=== PATIENT | female | born 1940 | race Caucasian/White ===

== ENCOUNTER → 2017-08-15 | Outpatient (CLI) | payer OTHER ==
[~2017-08-15] MED LIST: ALDACTONE25 MG PO; ASPIR 8181 MG PO; AYR SALINE NASA14 GM; AYR SALINE NASA14 GM TOP; BACTRIM DS TAB1 EACH PO; COLACE100 MG PO; DEMADEX20 MG PO; DIGOXIN250 MCG PO; DILTIAZEM 24HR360 M1 PO; DUONEB 2.5-0.5 M3 ML; DUONEB 2.5-0.5 M3 ML INH; ELIQUIS5 MG PO; FLECAINIDE ACET50 M1 PO; FLONASE 0.05%50 MCG; FLONASE 0.05%50 MCG NASAL; HYDROCERIN CREA1 JAR TOP; HYDROCODON-ACE1 EAC7 PO; IRON325 PO; KEFLEX500 MG PO; KLOR-CON 1010 MEQ PO; LASIX 40 MG TAB40 M2; LASIX 40 MG TAB40 M2 PO; LEVAQUIN 500 M500 M2 PO; LEVOTHYROXIN0.112 M1; LEVOTHYROXIN0.112 M1 PO; LEVOTHYROXIN0.125 M1 PO; MIRALAX17 GM PO; MIRALAX255 GM; MUCINEX TA600 MG/TA2 PO; MUCUS ER600 M1 PO; NAPROSYN500 M1 PO; NORCO 5-325 TA1 EACH PO; NYSTATIN 1100000 U/M PO; ONDANSETRON HCL4 M2 PO; PHENAZOPYRIDIN200 M2 PO; QNASL8.7 GM; SENNA-LAX8.6 MG PO; SIMETHICON CHEW80 MG PO; SPIRIVA INH; SYMBICORT160 MCG/4.; SYMBICORT160 MCG/4. INH; TRAZODONE HCL50 MG PO; VENTOLIN HFA 1818 GM INH; ZAROXOLYN 5MG TA5 MG PO; ZOCOR40 MG PO; ZOFRAN4 MG PO; [UNRECOGNIZED DRUG - OTHER]
[2017-08-15 15:20] LABS: BE(vivo) 15.3 mmol/L (-2 to +3); HCO3 43.5 mmol/L (22.0-26.0); PCO2 73.6 mmHg (35.0-45.0); PO2 78.5 mmHg (80.0-100.0); pH 7.389 (7.360-7.450); sO2 94.9 % (92.0-98.0)
== END ==
LOC: PUL 14:18
PROVIDERS: Internal Medicine Pulmonary Disease
DX: R06.02 Shortness of breath (principal)